=== PATIENT | female | born 1995 | race Caucasian/White ===

== ENCOUNTER 2016-05-27 03:00 | Emergency (ER) | payer SELFPAY ==
[~2016-05-27] VITALS: Ht 160 cm; Wt 104.1 kg
[2016-05-27 03:54] LABS: HEMATOCRIT 38.8 % (36.0-46.0); MCH 27.4 PG (29.0-34.0); MCV 83.1 FL (83-99); MEAN PLAT.VOLUME 9.9 uM^3 (9.5-12.4); PLATELET COUNT 323 K/uL (156-360); RBC DIS.WIDTH-CV 12.8 % (11.8-14.6); RBC DIS.WIDTH-SD 38.7 % (39-53); RED BLOOD COUNT 4.67 M/uL (3.80-5.20); WHITE BLOOD COUNT 9.5 K/uL (4.1-10.2)
[2016-05-27 04:02] LABS: CHLORIDE 107 mEq/L (99-109); POTASSIUM 3.4 mEq/L (3.7-5.4); SODIUM 136 mEq/L (136-147)
[2016-05-27 04:05] LABS: GLUCOSE 132 mg/dL (70-99)
[2016-05-27 04:06] LABS: ANION GAP 9 MEQ/L (2-14); TOTAL BILIRUBIN 0.3 mg/dL (0.0-1.0)
[2016-05-27 04:06] LABS: ADD MIUA? YES; BILIRUBIN NEGATIVE; BLOOD SMALL; COLOR YELLOW ((YELLOW)); GLUCOSE (STRIP) NEGATIVE; KETONES NEGATIVE; LEUKOCYTES MODERATE; NITRITE NEGATIVE; PROTEIN (STRIP) NEGATIVE; SPECIFIC GRAVITY 1.019 (1.000-1.030); UROBILINOGEN 0.2 MG/DL (0.2-1.0)
[2016-05-27 04:08] LABS: ALKALINE PHOSPHATASE 58 IU/L (3-129); GFR ESTIMATE (CALCULATED) > 59 mL/min/
[2016-05-27 04:09] LABS: UREA NITROGEN (BUN) 14 mg/dL (9-23)
[2016-05-27 04:12] LABS: LIPASE 15 U/L (1.0-51.0)
[2016-05-27 04:12] LABS: BACTERIA RARE /HPF; EPITHELIAL CELLS 1+ /HPF; MUCUS TRACE /LPF; UCUL ADDED? NO; WHITE BLOOD CELLS 15-20 /HPF (0-5)
[2016-05-27 04:17] LABS: QUANTITATIVE HCG < 4.0 MIU/ML
[2016-05-27] MEDS ORDERED: FLOMAX0.4 MG PO (05:15)
[2016-05-27] MEDS ORDERED: CIPRO500 MG PO (05:15)
[2016-05-27] MEDS ORDERED: NORCO 5/3251 TABLET PO (05:15)
[2016-05-27] MEDS ORDERED: ZOFRAN8 MG PO (05:15)
[2016-05-27 06:16] VITALS: BP 125/82
== END 2016-05-27 06:17 | disposition home or self-care (01) ==
LOC: EME 03:00
DX: N20.1 Calculus of ureter (principal); N30.01 Acute cystitis with hematuria
CPT/HCPCS: 74176; 80053; 81003; 83690; 84702; 85027; 99281; 99285; J0744; J1885; J2270; J2405; J7030